=== PATIENT | male | born 1980 | race Caucasian/White ===

== ENCOUNTER 2021-01-18 19:09 | Emergency (ER) | payer SELFPAY ==
[2021-01-18 19:18] VITALS: BP 195/125; PULSE 103; RESP 22; TEMP 36.7; O2SAT 97; BMI 43.7
--- NOTE | 2021-01-18 19:27 | CTR_ITS ---
PROCEDURE INFORMATION: Exam: CT Abdomen And Pelvis With Contrast Exam date and time: 01/18/2021 7:27 PM Age: 40 years old Clinical indication: Pain; Other: RT groin; Prior surgery; Surgery type: Inguinal hernia; Additional info: Abd pain TECHNIQUE: Imaging protocol: Computed tomography of the abdomen and pelvis with contrast. Radiation optimization: All CT scans at this facility use at least one of these dose optimization techniques: automated exposure control; mA and/or kV adjustment per patient size (includes targeted exams where dose is matched to clinical indication); or iterative reconstruction. Contrast material: OMNI 300; Contrast volume: 95 ml; Contrast route: INTRAVENOUS (IV); COMPARISON: No relevant prior studies available. RADIATION DOSE METRICS: Total DLP (mGy-cm): 1963.69 FINDINGS: Liver: Hepatic steatosis. Gallbladder and bile ducts: Normal. No calcified stones. No ductal dilation. Pancreas: Normal. No ductal dilation. Spleen: Normal. No splenomegaly. Adrenal glands: Normal. No mass. Kidneys and ureters: Normal. No hydronephrosis. Stomach and bowel: Unremarkable. No obstruction. No mucosal thickening. Appendix: No evidence of appendicitis. Intraperitoneal space: Unremarkable. No free air. No significant fluid collection. Vasculature: Unremarkable. No abdominal aortic aneurysm. Lymph nodes: Unremarkable. No enlarged lymph nodes. Urinary bladder: Unremarkable as visualized. Reproductive: Unremarkable as visualized. Bones/joints: Unremarkable. No acute fracture. Soft tissues: Unremarkable. CT/CT abdomen pelvis w con* [id number] IMPRESSION: 1. Negative for acute inflammatory process in the abdomen or pelvis. 2. Hepatic steatosis. Radiation Dose CTDIVOL = (mGy): DLP = 1963.69 (mGy-cm)
--- NOTE | 2021-01-18 19:28 | W.ED.ABDPA2 ---
HPI - Abdominal Pain General: Chief Complaint: Abdominal Pain Stated Complaint: abd pain buning and pulling Time Seen by Provider: 01/18/21 19:19 Source: patient Mode of arrival: ambulatory Limitations: no limitations History of Present Illness: HPI narrative: 40-year-old male who states he had abdominal hernia surgery in the right inguinal region 3 months ago at [place]. He states of last 2 weeks has been having some intermittent abdominal pain that worsened today. He states pain today is a 5 out of 10 sharp in nature. Denies any worsening improving factors. Denies any constipation diarrhea or vomiting. Denies any fevers. Associated Symptoms: Denies chills, dysuria and fever(s) Review of Systems Const: Denies: fever(s), chills, body aches or change in appetite Eyes: Denies: blurry vision or eye discomfort ENMT: Denies: throat pain or dental pain Card: Denies: chest pain Resp: Denies: dyspnea GI: Reports: abdominal pain : Denies: dysuria Musc: Denies: neck pain or back pain Skin/Breast: Denies: rash Neuro: Denies: headache(s) Psych: Denies: depression Tao/Lymph: Denies: easy bruising All/Imm: Denies: urticaria Physical Exam Const: COMMON NORMALS: no acute distress, patient oriented x3 and healthy appearing HENMT: COMMON NORMALS: normocephalic and atraumatic HEAD & SCALP: normocephalic and atraumatic Eye: COMMON NORMALS: Equal, round and reactive pupils present and EOMs intact bilaterally PUPIL: Yes Equal, round and reactive pupils present Neck/C-Spine: COMMON NORMALS: full ROM and supple Chest: COMMONS NORMALS: normal inspection of the chest and normal palpation of entire chest wall Resp: COMMON NORMALS: normal respiratory effort, No retractions, No use of accessory muscles and clear to auscultation bilaterally AUSCULTATION: clear to auscultation bilaterally Cardio: COMMON NORMALS: regular rate, regular rhythm and No murmurs present (Cardio) RATE: regular rate RHYTHM: regular rhythm GI: COMMON NORMALS: Normal to inspection, nondistended, normoactive bowel sounds present, Soft to palpation and no masses PALPATION: Yes Soft to palpation OTHER: Slight tenderness right lower quadrant no obvious hernia palpated Extremity: COMMON NORMALS: normal to inspection and full ROM Neuro: COMMON NORMALS: patient oriented x3, moves all extremities and no focal motor deficits Psych: COMMON NORMALS: mental status grossly normal, Normal thought process present and cooperative THOUGHT PROCESS: Normal thought process present Skin: COMMON NORMALS: no rashes or lesions noted and no wounds GENERAL SKIN EXAM: no rashes or lesions noted Course Vital Signs: Vital signs: Vital Signs Temperature 98.1 F 01/18/21 19:18 Pulse Rate 95 01/18/21 20:10 Respiratory Rate 21 H 01/18/21 20:10 Blood Pressure 185/126 01/18/21 20:10 Pulse Oximetry 98 01/18/21 20:10 MDM - Abdominal Pain MDM Narrative: Medical decision making narrative: Patient presents here with abdominal pain exam here is benign discharge blood work and CT scan are normal as well. Patient stable for discharge she is to follow-up with PCP and return if worsening. Lab Data: Labs: Lab Results 01/18/21 01/18/21 19:50 19:50 WBC 14.3 10^3/uL H 10 ^3/uL (4.0-10.0) RBC 5.27 10^6/uL 10^6 /uL (4.1-5.3) Hgb 15.3 g/dL g/dL (11.7-16.6) Hct 47.1 % % (42.0-52.0) MCV 89.4 fl fl (80-94) MCH 29.0 pg pg (28.0-34.0) MCHC 32.5 g/dL g/dL (30.0-36.0) RDW 13.4 % % (12.1-15.1) Plt Count 326 10^3/cmm 10^3 /cmm (130-400) MPV 10.1 fL fL (7.4-10.4) Neut % (Auto) 73.5 % % Lymph % (Auto) 15.1 % % Schuyler % (Auto) 7.6 % % Eos % (Auto) 2.2 % % Baso % (Auto) 1.2 % % Neut # (Auto) 10.50 10^3/uL H 1 0^3/uL (1.8-7.7) Lymph # (Auto) 2.2 10^3/uL 10^3/ uL (0.8-4.8) Schuyler # (Auto) 1.1 10^3/uL H 10^ 3/uL (0.2-0.9) Eos # (Auto) 0.3 10^3/uL 10^3/ uL (0.0-0.8) Baso # (Auto) 0.2 10^3/uL H 10^ 3/uL (0.0-0.1) Nucleated RBC % (a uto) 0 % % Nucleated RBCs # 0.0 /100WBC /100W BC Sodium 136 mmol/L mmol/L (136-145) Potassium 3.5 mmol/L mmol/L (3.5-5.1) Chloride 99 mmol/L mmol/L (98-107) Carbon Dioxide 26 mmol/L mmol/L (22-29) Anion Gap 14.5 (5-19) BUN 15 mg/dL mg/dL (6-20) Creatinine 1.0 mg/dL mg/dL (0.7-1.2) GFR Calculation 81.9 mL/min L mL/ min (90-130) Glucose 156 mg/dL H mg/dL (65-115) Calculated Osmolal ity 286 mOsm/kg mOsm/ kg (285-295) Calcium 8.8 mg/dL mg/dL (8.5-10.5) Total Bilirubin 0.2 mg/dL mg/dL (0.15-1.2) AST 13 U/L U/L (0-40) ALT 26 U/L U/L (0-41) Alkaline Phosphata se 84 IU/L IU/L (40-130) Total Protein 7.0 g/dL g/dL (6.6-8.7) Albumin 3.6 g/dL g/dL (3.5-5.2) Globulin 3.4 g/dL g/dL (1.3-4.6) Lipase 23 U/L U/L (13-60) Discharge Plan Discharge Patient Disposition: Home Clinical Impression: Abdominal pain Qualifiers: Abdominal location: right lower quadrant Qualified Code(s): R10.31 - Right lower quadrant pain Condition: Stable Discharge Orders: Discharge ED (Routine); Ordered 01/18/21 Ordered By: Gisele Fields Discharge Diet: Advance as tolerated Discharge Activity: Resume usual activity Patient Instructions: Abdominal Pain (ED), Opioid Safety Coding Level of Care Code ED Manager [employer] for [employer] Fwd Exam Comprehensive
[2021-01-18] MEDS: iohexol 300 mg/mL 100 mL Btl IV (19:54)
[2021-01-18 20:02] LABS: Basophils # 0.2 10^3/uL (0.0-0.1); Basophils % 1.2 %; Eosinophils # 0.3 10^3/uL (0.0-0.8); Eosinophils % 2.2 %; Hematocrit 47.1 % (42.0-52.0); Hemoglobin 15.3 g/dL (11.7-16.6); Lymphocytes # 2.2 10^3/uL (0.8-4.8); Lymphocytes % 15.1 %; Mean Corpuscular HGB Conc 32.5 g/dL (30.0-36.0); Mean Corpuscular Volume 89.4 fl (80-94); Mean Platelet Volume 10.1 fL (7.4-10.4); Monocytes # 1.1 10^3/uL (0.2-0.9); Monocytes % 7.6 %; Neutrophils % 73.5 %; Nucleated Red Blood Cells % 0 %; Platelet Count 326 10^3/cmm (130-400); Red Blood Count 5.27 10^6/uL (4.1-5.3); Red Cell Distribution Width 13.4 % (12.1-15.1); White Blood Count 14.3 10^3/uL (4.0-10.0)
[2021-01-18] MEDS: sodium chloride 0.9% 1,000 ML 999 ML IV (20:03)
[2021-01-18 20:10] VITALS: BP 185/126; PULSE 95; RESP 21; O2SAT 98
--- NOTE | 2021-01-18 20:12 | PC.NURSE ---
pt offered morphine and zofran and refused. pt blood pressure taken multiple times with elevated pressures; physician ordered labetolol, patient refused. stated 'he took his blood pressure medication late this evening and doesn't want any extra'
[2021-01-18 20:37] LABS: Alanine Aminotransferase 26 U/L (0-41); Albumin Level 3.6 g/dL (3.5-5.2); Alkaline Phosphatase 84 IU/L (40-130); Anion Gap 14.5 (5-19); Aspartate Amino Transferase 13 U/L (0-40); Blood Urea Nitrogen 15 mg/dL (6-20); Calcium 8.8 mg/dL (8.5-10.5); Carbon Dioxide 26 mmol/L (22-29); Chloride 99 mmol/L (98-107); Globulin 3.4 g/dL (1.3-4.6); Glomerular Filtration Rate 81.9 mL/min (90-130); Glucose 156 mg/dL (65-115); Lipase 23 U/L (13-60); Osmolality Calculated 286 mOsm/kg (285-295); Potassium 3.5 mmol/L (3.5-5.1); Sodium 136 mmol/L (136-145); Total Bilirubin 0.2 mg/dL (0.15-1.2)
[2021-01-18 21:13] VITALS: BP 224/129; PULSE 103; RESP 23; O2SAT 97
--- NOTE | 2021-01-18 21:16 | PC.NURSE ---
pt re educated on his blood pressure being so elevated. since pt refused medications again, I educated pt he needed to see his PCP as soon as possible. Pt was having no symptoms as of this time related to his BP; steady gait, no dizziness or n/v. this nurse told pt he needed to keep a log of his blood pressures to give his pcp. pt then stated 'listen i have white coat syndrome, as soon as i walk out those doors it will be fine'
== END 2021-01-18 21:19 | disposition home or self-care (01) ==
PROVIDERS: Emergency Medicine; Emergency Provider Emergency Medicine
DX: R10.31 Right lower quadrant pain (principal)
CPT/HCPCS: 74177; 80053; 83690; 85025; 96360; 99283; J7030; Q9967

== ENCOUNTER 2022-06-08 23:06 | Emergency (ER) | payer BC, SELFPAY ==
--- NOTE | 2022-06-08 23:08 | XRR_ITS ---
PROCEDURE INFORMATION: Exam: XR Right Foot Exam date and time: 06/08/2022 11:18 PM Age: 41 years old Clinical indication: Injury or trauma; Other: Dropped a tool on foot; Blunt trauma; Right TECHNIQUE: Imaging protocol: Radiologic exam of the right foot. Views: 3 or more views. COMPARISON: No relevant prior studies available. FINDINGS: Bones/joints: Small calcified heel spur. Soft tissues: Normal. XR/XR foot RT min 3V* [id number] IMPRESSION: No acute findings.
[2022-06-08 23:09] VITALS: BMI 45.7
[2022-06-08 23:12] VITALS: BP 136/87; PULSE 105; RESP 16; TEMP 36.8; O2SAT 99
--- NOTE | 2022-06-08 23:14 | ED_ITS ---
HPI - Extremity Injury (Lower) General: Chief Complaint: Extremity Injury, Lower Stated Complaint: Right foot injury Time Seen by Provider: 06/08/22 23:07 Source: patient Mode of arrival: ambulatory Limitations: no limitations History of Present Illness: Patient is a 41-year-old male who presents to ED today for evaluation of a right foot injury. Patient tells me that he is unwilling to tell me what really happened so he states he is just going to tell me that he dropped something on the foot. Regardless he reports pain to the dorsal aspect at the base of his great toe and the great toe itself. complaint: foot injury Onset (ago): hour(s) Injury: Right: foot and toes Type of Injury: other (unknown-patient unwilling to disclose ) Place: home Severity: moderate Relieving factors: immobilization Exacerbating factors: weight bearing, movement and palpation Associated symptoms: Reports no associated symptoms Other symptoms: none Review of Systems Musc: Reports: extremity pain (R foot); Denies: neck pain, back pain, extremity swelling, joint pain, joint swelling, joint redness or joint warmth Neuro: Denies: numbness in extremities, sensory changes or difficulty walking Physical Exam Const: COMMON NORMALS: no acute distress, patient oriented x3, alert and well nourished GENERAL APPEARANCE: cooperative NUTRITIONAL APPEARANCE: obese ORIENTATION/CONSCIOUSNESS: Yes awake, Yes oriented to person, Yes oriented to place and Yes oriented to time Extremity: RIGHT LOWER EXTREMITY: Yes foot & digits (TTP R great toe, distal 1st metatarsal) Right foot and digits: Yes inspection (some scant ecchymosis to area) and Yes neurovascular exam (normal) Neuro: COMMON NORMALS: patient oriented x3, moves all extremities, no focal motor deficits and no sensory deficits noted SENSORIUM/ORIENTATION: Yes alert, Yes oriented to person, Yes oriented to place and Yes oriented to time GAIT: Yes Normal gait present Course Vital Signs: Vital signs: Vital Signs Temperature 98.2 F 06/08/22 23:12 Pulse Rate 105 H 06/08/22 23:12 Respiratory Rate 16 06/08/22 23:12 Blood Pressure 136/87 06/08/22 23:12 Pulse Oximetry 99 06/08/22 23:12 Oxygen Delivery Me thod 06/08/22 23:12 MDM - Extremity Injury (Lower) Medical Decision Making XR personal interpretation-small avulsion fx at distal 1st metatarsal seen only on oblique view. Will place in hard soled shoe and have him follow up with podiatry. Discharge Plan Discharge Patient Disposition: Home Clinical Impression: Closed fracture of first metatarsal bone Qualifiers: Encounter type: initial encounter Fracture alignment: nondisplaced Laterality: right Qualified Code(s): S92.314A - Nondisplaced fracture of first metatarsal bone, right foot, initial encounter for closed fracture Condition: Stable Discharge Orders: Discharge ED (Routine); Ordered 06/08/22 Ordered By: Yokasta Nguyen Referrals: South Montes MD [Primary Care Provider] - Patient Instructions: Fractures - Metatarsal Activity Restrictions/Additional Instructions: As we discussed case management should contact you early this week to set you up with your follow-up orthopedic/podiatry appointment. You need to wear splint/hard soled shoe at all times until that appointment. Coding Level of Care Code ED Acute Care Registered Nurse for Alonso Hodges
--- NOTE | 2022-06-11 09:24 | DCPLANNER ---
Addendum entered by Marci Jurado 06/14/22 08:01: Patient had an appointment scheduled with ortho - patient did attend appointment Addendum entered by Marci Jurado 06/11/22 13:47: Patient has a follow up appointment scheduled for Saturday, June 13, [address]22 at 3:[address] Loya at ortho. Clinic will call patient with appointment. Original Note: hog confinement system manager had message to schedule a follow up appointment for patient with podiatry. hog confinement system manager sent patients information to the front office staff at podiatry. Patients information will be printed and reviewed. Clinic will call patient with appointment information.
== END 2022-06-09 | disposition home or self-care (01) ==
PROVIDERS: Emergency Provider Physician Assistant; PCP Family Medicine
DX: S92.314A Nondisplaced fracture of first metatarsal bone, right foot, initial encounter for closed fracture (principal); X58.XXXA Exposure to other specified factors, initial encounter
CPT/HCPCS: 73630; 99283